=== PATIENT | male | born 1990 | race African-American/Black ===

== ENCOUNTER 2021-03-24 06:09 | Emergency (ER) | payer MEDICAID, OTHER ==
[~2021-03-24] VITALS: Ht 182.9 cm; Wt 63.6 kg
--- NOTE | 2021-03-24 06:37 | NUR ---
Pt changed into green scrubs. Pt came without any pants. Pt has a long sleeve burgandy t-shirt, underwear, and socks. Pt continues to be non-verbal. SCS states that the pt has never been violent, just tried to run. Pt follows commands well.
--- NOTE | 2021-03-24 06:38 | NUR ---
Warm blankets given as pt is quite cold to the touch.
[2021-03-24] MEDS ORDERED: ketamine 50 mg/ml 10ml vial IM ONE (06:55)
[2021-03-24] MEDS ORDERED: diphenhydrAMINE 50 mg/ml inj IM ONE (07:00)
[2021-03-24] MEDS ORDERED: haloperidol lactate 5mg/ml inj IM ONE (07:00)
[2021-03-24] MEDS ORDERED: LORazepam 2 mg/ml vial IM ONE (07:00)
--- NOTE | 2021-03-24 07:30 | NUR ---
Pt broke the soft wrist restraints and ran to the bathroom. This RN was able to get a urine sample in the urinal. Pt walked back to bed with staff after using the restroom.
[2021-03-24 07:43] LABS: CLARITY,URINE SLIGHTLY CLOUDY (Clear); COLOR,URINE YELLOW (Yellow); GLUCOSE, URINE NEGATIVE (Neg); KETONES,URINE NEGATIVE (Neg); LEUKOCYTE ESTERASE ,URINE NEGATIVE (Neg); NITRITES, URINE NEGATIVE (Neg); OCCULT BLOOD,URINE NEGATIVE (Neg); PROTEIN,URINE NEGATIVE (Neg); UROBILINOGEN,URINE 0.2 E.U/dL (0.2-1.0)
[2021-03-24 07:54] LABS: URINE AMPHETAMINE SCREEN NEGATIVE (Neg); URINE BARBITUATE SCREEN NEGATIVE (Neg); URINE BENZODIAZEPINES SCREEN NEGATIVE (Neg); URINE CANNABINOID SCREEN POSITIVE (Neg); URINE COCAINE SCREEN NEGATIVE (Neg); URINE METHADONE SCREEN NEGATIVE (Neg); URINE OPIATE SCREEN NEGATIVE (Neg); URINE PHENCYCLIDINE SCREEN NEGATIVE (Neg)
--- NOTE | 2021-03-24 08:08 | NUR ---
JESSICA Chaudhari [facility].
[2021-03-24 08:11] LABS: UA COLLECTION TYPE CLN CATCH MIDSTREAM
[2021-03-24 08:21] LABS: BACTERIA,URINE FEW /HPF (Neg); CAL OXALATE CRYSTALS FEW /HPF (NEGATIVE); RBC,URINE 0-2 /HPF (0-2); SQUAMOUS EPITHELIAL CELL,UR FEW /LPF (FEW); WBC,URINE 0-4 /HPF (0-4)
[2021-03-24 08:22] LABS: MUCUS STRANDS FEW /LPF (Neg)
[2021-03-24 08:40] LABS: BASOPHILS % (AUTO) 0.4 % (0-1); EOSINOPHILS % (AUTO) 0.1 % (0-6); HEMATOCRIT 43.2 % (42.0-52.0); HEMOGLOBIN 14.4 g/dl (14.0-17.9); LYMPHOCYTES # (AUTO) 0.7 X10'3 (1.1-4.8); LYMPHOCYTES % (AUTO) 9.4 % (21-51); MEAN CORPUSCULAR HEMOGLOBIN 29.3 PG (27.0-31.0); MEAN CORPUSCULAR HGB CONC 33.2 g/dL (33.0-36.5); MEAN CORPUSCULAR VOLUME 88.2 FL (78-98); MEAN PLATELET VOLUME 7.7 FL (7.4-10.4); MONOCYTES # (AUTO) 0.5 X10'3 (0-0.9); MONOCYTES % (AUTO) 6.5 % (2-12); NEUTROPHILS # (AUTO) 6.2 X10'3 (1.8-7.7); NEUTROPHILS % (AUTO) 83.6 % (42-75); PLATELET COUNT 232 X10'3 (140-440); RED CELL DISTRIBUTION WIDTH 12.5 % (11.5-14.5); WHITE BLOOD COUNT 7.4 X10'3 (4.5-11.0)
[2021-03-24 08:51] LABS: ALANINE AMINOTRANSFERASE 22 U/L (12-78); ALBUMIN 4.4 G/DL (3.4-5.0); ALBUMIN/GLOBULIN RATIO 1.3 (1.1-1.5); ALKALINE PHOSPHATASE 101 IU/L (46-116); ANION GAP 11 (8-16); ASPARTATE AMINO TRANSFERASE 19 U/L (10-37); BILIRUBIN,TOTAL 0.5 MG/DL (0.1-1.0); BLOOD UREA NITROGEN 19 MG/DL (7-18); BUN/CREATININE RATIO 15.8 (5.4-32.0); CALCIUM 9.1 MG/DL (8.5-10.1); CHLORIDE 105 MMOL/L (99-107); GLUCOSE 108 MG/DL (70-104); POTASSIUM 3.8 MMOL/L (3.5-5.1); SODIUM 143 MMOL/L (135-145); TOTAL CARBON DIOXIDE 26.8 MMOL/L (24-32); TOTAL PROTEIN 7.8 G/DL (6.4-8.2); eGFR 86 ML/MIN
[2021-03-24 09:02] LABS: ETHANOL < 0.010 GM/DL (0.0-0.010)
[2021-03-24 10:15] VITALS: BP 127/62
--- NOTE | 2021-03-24 12:01 | NUR ---
Patient brought over from ED Main. Patient got in bed then got up and walked to the BR. Patient apparently had a BM. Patient attempted to go out the curtains but was re-directable back to bed. Patient appears to understand but has not said a word. Patient does not look familiar to this RN. Patient laying under the covers. No distress observed. Continue to monitor.
--- NOTE | 2021-03-24 12:29 | NUR ---
Patient given water and crackers. Patient eating and drinking.
--- NOTE | 2021-03-24 12:55 | NUR ---
1030 PATIENT DRANK 120 ML WATER
--- NOTE | 2021-03-24 13:14 | NUR ---
[employer] Worker receives report that her son from [place] was missing. Patient is autistic.
--- NOTE | 2021-03-24 13:15 | NUR ---
RN asked the SO what is the name of the missing person reported. Joanne's officer states Jose R. RN walked to the hallway but patient could not see RN and called "Jose R". Patient immediately sat up and looked at me. RN then knew that this was the missing patient.
--- NOTE | 2021-03-24 13:22 | NUR ---
Pt's mother, Soraya Archer verifed pt's identity. SO [facility] Franc #[id number] bedside and engaged with Mother. [facility] to be notified to reassess as mother reports pt is autistic
--- NOTE | 2021-03-24 13:32 | NUR ---
[facility], engaged with mother. [id number] being released. EDMD [place] notified.
--- NOTE | 2021-03-24 13:35 | NUR ---
Patient's mother reported him missing "for about over 1 hour" per Joanne's Officer. Patient has been here since around 0600 am. Mother stated that she "let him sleep" because they had stayed up late last night and watched movies.
--- NOTE | 2021-03-24 13:39 | NUR ---
Clothing shirt and shorts provided pt. Registration notified mother present and heading back.
== END 2021-03-24 13:54 | disposition home or self-care (01) ==
LOC: ER 06:11 → EDBD 06:11 → ER 13:54
DX: F79 Unspecified intellectual disabilities (principal); R41.0 Disorientation, unspecified
CPT/HCPCS: 36415; 80053; 80305; 80320; 81001; 84443; 85025; 96372; 99285; J1200; J1630; J2060